=== PATIENT | female | born 1970 | race Caucasian/White ===

== ENCOUNTER 2017-07-04 08:57 | Observation (INO) | payer MEDICARE ==
[2017-07-04 09:29] LABS: #Lymphocytes 1.3 thou/uL (1.20-3.40); #Monocytes 0.6 thou/uL (0.11-0.59); #Neutrophils 10.5 thou/uL (1.40-6.50); %Basophils 0.1 % (0.0-1.0); %Eosinophils 0.2 % (0.0-10.0); %Lymphocytes 10.3 % (21.0-51.0); %Monocytes 4.6 % (0.0-10.0); %Neutrophils 84.9 % (42.0-75.0); Hemoglobin 16.7 g/dL (12.0-16.0); Mean Corpuscular HGB CONC 35.1 g/dL (32.0-36.0); Mean Corpuscular Hemoglobin 31.4 pg (27.0-31.0); Mean Corpuscular Volume 89.4 fl (81.0-99.0); Mean Platelet Volume 6.6 fL (7.4-10.4); Platelet Count 434 thou/uL (130-400); RBC Distribution Width 11.1 % (11.5-14.5); Red Blood Cell (RBC) Count 5.32 mill/uL (4.20-5.40); White Blood Cell (WBC) Count 12.4 thou/uL (4.8-10.8)
--- NOTE | 2017-07-04 09:41 | CT ---
CT OF BRAIN PERFORMED WITHOUT CONTRAST ENHANCEMENT: Date: 07/04/17 HISTORY: Headache. FINDINGS: The ventricular and cisternal system is within normal limits. There are no signs of intracerebral hem orrhage or extra-axial fluid collections. The mastoid air cells and visualized sinuses are clear. IMPRESSION: No acute intracranial abnormalities. POS: [facility]
[2017-07-04 09:47] LABS: ALT (SGPT) 20 U/L (8-55); AST (SGOT) 12 U/L (5-34); Albumin 4.8 g/dL (3.5-5.0); Alkaline Phosphatase 97 U/L (40-150); Anion Gap 16 mmol/L (10-20); BUN (Urea Nitrogen) 11 mg/dL (7.0-18.7); Bilirubin, Total 0.6 mg/dL (0.2-1.2); CK (CPK) 65 U/L (29-168); Calc. Creatinine Clearance 0 mL/min (70-130); Calcium 10.3 mg/dL (7.8-10.44); Carbon Dioxide 24 mmol/L (22-29); Chloride 98 mmol/L (98-107); Estimated GFR-MDRD 71; Globulin 3.7 g/dL (2.4-3.5); Glucose 244 mg/dL (70-105); Protein, Total 8.5 g/dL (6.0-8.3); Sodium 134 mmol/L (136-145)
[2017-07-04 09:51] LABS: CKMB 0.8 ng/mL (0-6.6); Troponin I Less than 0.010 ng/mL (< 0.028)
[2017-07-04] MEDS ORDERED: Metoclopramide 10 MG/10 ML UDCUP ONE (09:56)
[2017-07-04] MEDS ORDERED: diphenhydrAMINE 50 MG/ML VIAL ONE (09:56)
[2017-07-04] MEDS ORDERED: Metoclopramide HCl 10 MG/2 ML VIAL IVP SCH ×2 (10:15→15:30)
[2017-07-04 10:16] LABS: PTT 28.1 SEC (22.9-36.1); Prothrombin Time 13.4 SEC (12.0-14.7)
--- NOTE | 2017-07-04 11:01 | CT ---
CT ANGIOGRAM BRAIN WITH IV CONTRAST AND 3D RECONSTRUCTIONS CT ANGIOGRAM NECK WITH IV CONTRAST AND 3D RECONSTRUCTIONS: Date: 07/04/17 HISTORY: Patient with dizziness, nausea, vomiting, and headache. Pain to base of head and neck. Vision changes . FINDINGS: CT ANGIOGRAM NECK: Visualized aortic arch is normal in caliber. There is a normal arrangement of the great vessels at th e aortic arch which do appear patent. A portion of the right subclavian artery is obscured due to den se contrast in the right subclavian vein. The innominate artery, as well as bilateral common carotid arteries are patent. The bilateral internal and external carotid arteries are patent. There is no sig nificant atherosclerotic plaque seen within the carotid arteries. The right vertebral artery is dominant and patent. The left vertebral artery is patent and smaller in size, but terminates in PICA. Visualized upper lobes are clear. Visualized paranasal sinuses and mastoid air cells are clear. Degenerative changes are seen in the spine. There is mild prominence of the adenoids, which is nonspecific. Calcifications are seen in the pal[place] ne tonsils bilaterally, likely related to prior infectious or inflammatory process. The bilateral parotid and submandibular glands demonstrate a normal CT appearance. Thyroid gland has a normal appearance. IMPRESSION: 1. Patent bilateral internal carotid arteries. 2. Patent bilateral vertebral arteries. The left vertebral artery terminates in PICA, which is a nor mal variant. 3. Nonspecific prominence of the adenoids. No enlarged lymph nodes are seen by CT size criteria, but there is questionable borderline increased number of lymph nodes. Clinical correlation for evidence of infection is suggested, and non-emergent ENT consultation may be helpful depending on clinical con cern. CT ANGIOGRAM HEAD: The bilateral anterior cerebral and middle cerebral arteries are patent. Distal bilateral internal ca rotid arteries are patent. As noted on the CTA neck, the right vertebral artery is dominant and patent. The basilar artery, as w ell as bilateral posterior cerebral arteries are patent. The distal left vertebral artery terminates in PICA. There is no focal stenosis or branch occlusion seen. No aneurysm is seen within limitations of the te chnique of the exam. IMPRESSION: No focal stenosis or branch occlusion involving the [place] or vertebrobasilar system. Above findings discussed with Suze Pendleton, nurse practitioner in the emergency department, on 8 at 1033 hours. CODE CR. POS: [facility]
[2017-07-04] MEDS ORDERED: Ketorolac Tromethamine 30 MG/ML VIAL ONE (11:06)
[2017-07-04] MEDS ORDERED: Ondansetron ODT 4 MG TAB ONE (11:51)
[2017-07-04] MEDS ORDERED: Diabetic Tussin 200 MG/10 ML UDCUP PO PRN (13:08)
[2017-07-04] MEDS ORDERED: hydrALAZINE 20 MG/ML VIAL SLOW IVP PRN (13:08)
[2017-07-04] MEDS ORDERED: Loratadine 10 MG TAB PO PRN (13:08)
[2017-07-04] MEDS ORDERED: Benzonatate 100 MG CAP PO PRN (13:08)
[2017-07-04] MEDS ORDERED: Calcium Carbonate 500 MG ChewTAB PO PRN (13:08)
[2017-07-04] MEDS ORDERED: traMADol HCl 50 MG TAB PO PRN (13:08)
[2017-07-04] MEDS ORDERED: cloNIDine 0.1 MG TAB PO PRN (13:08)
[2017-07-04] MEDS ORDERED: Bisacodyl 5 MG TAB PO PRN ×2 (13:08)
[2017-07-04] MEDS ORDERED: Nitroglycerin 0.4 MG TAB (25 Tab Bottle) SL PRN (13:08)
[2017-07-04] MEDS ORDERED: Ondansetron HCl/PF 4 MG/2 ML Vial IVP PRN (13:08)
[2017-07-04] MEDS ORDERED: Mag-Al 1200 mg/1200 mg/30 ML UDCUP PO PRN (13:08)
[2017-07-04] MEDS ORDERED: Senokot 8.6 MG TAB PO PRN ×2 (13:08)
[2017-07-04] MEDS ORDERED: SUMAtriptan Succinate 50 MG TAB PO SCH (13:15)
[2017-07-04] MEDS ORDERED: ISOVUE-370 76%-LOCM 1 ML ONE (13:37)
--- NOTE | 2017-07-04 14:14 | MRI ---
MRI BRAIN NONCONTRAST: HISTORY: TIA. COMPARISON: 07/04/17. FINDINGS: There is no evidence of acute intracranial hemorrhage or infarct. Gyriform areas of increased FLAIR and T2 signal involve bilateral posterior parietal and medial occipital areas, consistent with evolvi ng infarcts from the prior vascular injury in July 2016. There is no mass effect or shift of midline structures. Ventricles appear normal in size, shape, and position. Adenoidal prominence is nonspeci fic. IMPRESSION: Interval evolution of bilateral posterior cerebral artery infarcts from last year. No acute intracra nial abnormalities are demonstrated. POS: [facility]
[2017-07-04 14:37] LABS: Bilirubin Negative (Negative); Blood, Urine Negative (Negative); Clarity CLEAR (Clear); Glucose, Urine (Dipstick) 250 mg/dL (Negative); Leukocyte Negative (Negative); Nitrite Negative (Negative); Protein, Urine (Dipstick) 30 mg/dL (Neg-Trace); Specific Gravity, Urine 1.043 (1.002-1.036); Urobilinogen 0.2 mg/dL (0.2-1.0)
[2017-07-04 14:40] LABS: Bacteria/HPF None Seen HPF (None Seen); Hyaline Casts/LPF 0-3 HYALINE CAST LPF (0-3 Hyaline); RBC/HPF 0-3 HPF (0-3); Squamous Epithelial 0-3 HPF (0-3); WBC/HPF None Seen HPF (0-3)
[2017-07-04] MEDS ORDERED: Ketorolac Tromethamine 30 MG/ML VIAL IVP PRN (15:25)
[2017-07-04] MEDS ORDERED: Metoclopramide HCl 10 MG/2 ML VIAL IVP PRN (15:25)
[2017-07-04] MEDS ORDERED: Ketorolac Tromethamine 30 MG/ML VIAL IVP SCH (15:30)
[2017-07-04] MEDS ORDERED: Dextrose 5% in Water 1,000 ML IV PRN (15:34)
[2017-07-04] MEDS ORDERED: HumaLOG 300 UNITS/3 ML VIAL SC PRN ×2 (15:34)
[2017-07-04] MEDS ORDERED: Dextrose 50% Abboject 50 ML SYRINGE SLOW IVP PRN (15:34)
[2017-07-04 15:51] VITALS: BMI 29.0
[2017-07-04] MEDS: Sodium Chloride 0.9% 1,000 ML IV SCH (16:28)
[2017-07-04] MEDS: Acetaminophen 325 MG TAB PO PRN (20:42)
--- NOTE | 2017-07-05 00:03 | CON ---
DATE OF CONSULTATION: 07/04/2017 REFERRING PHYSICIAN: Kortney Lee MD REASON FOR CONSULTATION: Vision loss. HISTORY OF PRESENT ILLNESS: Ms. Cavazos is a pleasant 46-year-old female, who has been concerned for evaluation of visual loss. The patient reports that she has a history of stroke about a year ago that affected her vision. She had recovered well post her stroke, and was not having any issues. About few days ago, she was diagnosed with sinus infection. She was given oral antibiotics. After undergoing oral antibiotics, at the completion, she started noticing nausea, vomiting, and di arrhea. This has been ongoing for the past 3-4 days. Yesterday, she woke up with severe headache th at was located in the bifrontal orbital region. This was throbbing in quality and severe in intensit y. She also noted worsening of her vision. She decided to present to the emergency room today as he r symptoms were not improving. She currently reports that she is not able to see out of both eyes wh en they are both open. When she closes either eye, she is able to see part of the image, but not com pletely make out the whole image. She denies any changes in her speech, swallowing. She does compla in of having episode of chest pain and palpitations on yesterday. She also noted her balance to be o ff on yesterday; however, denies any falls. 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 PAST SURGICAL HISTORY: Significant for bilateral knee replacement and gastric bypass surgery. SOCIAL HISTORY: She denies smoking, alcohol use, or illicit drug use. CURRENT MEDICATIONS: Please review MAR. ALLERGIES: No known drug allergies. FAMILY HISTORY: None significant. PSYCHIATRIC HISTORY: History of anxiety, depression, and PTSD. REVIEW OF SYSTEMS: As mentioned above in HPI, otherwise negative. PHYSICAL EXAMINATION: VITAL SIGNS: Blood pressure of 132/68, pulse of 77, temperature of 98.3, respirations of 18, O2 sats of 98% on room air. GENERAL: Well-developed, well-nourished, female in no apparent distress. RESPIRATORY: Clear to auscultation bilaterally. NEUROLOGIC: Mental status: The patient is awake, alert, oriented x3. Speech and language: Fluent speech. Cranial nerves: Pupils are 3 mm and reactive. Visual villafana showed that she has normal fin colin counting on right side. On the left side, there is left temporal field inferior quadrantanopia, otherwise normal. Extraocular muscles are intact. No ptosis noted. Face is symmetric. Tongue and uvula are midline. Motor exam showed normal tone and bulk with a 5/5 strength in both upper and lowe r extremities. Sensory: Sensation is intact and symmetric. Deep tendon reflexes, 2+ reflex in both upper and lower extremities. Babinski: Plantar responses flexion bilaterally. Coordination intact to jfoyln-voae-yoeada and finger tapping bilaterally. LABORATORY DATA: Labs are reviewed, which included CBC, coag panel, CMP, urinalysis, which is signif icant for WBC of 12.4, hemoglobin 16.7, hematocrit of 47.6, platelet counts of 434, sodium 134; other cassidy unremarkable. IMAGING STUDIES: MRI brain without contrast was reviewed, which showed no acute intracranial abnorma lity. CT angiogram of the head and neck were reviewed, which showed no intracranial or extracranial vascula r abnormality. IMPRESSION: 1. Bilateral visual changes, likely secondary to migraine. 2. Migraine headache with aura. ASSESSMENT AND PLAN: Ms. Cavazos is a pleasant 46-year-old female who presented with a history of bilateral occipital stroke, presented with the acute onset of vision changes along with he adaches, nausea, and vomiting. Based on the description of symptoms, she likely has complicated migr prisca; however, I have reviewed her MRI brain and CT angiogram, which are nonrevealing. At this time, I will recommend giving her a dose of IV Depacon 500 mg x1. If her vision and headaches improved, s he is okay to be discharged home. There is no further neurological workup needed from my standpoint. Thank you for consultation.
[2017-07-05] MEDS: Sodium Chloride 0.9% 1,000 ML IV SCH (03:53)
[2017-07-05 05:48] LABS: #Basophils 0.1 thou/uL (0.0-0.2); #Lymphocytes 2.5 thou/uL (1.20-3.40); #Monocytes 0.7 thou/uL (0.11-0.59); #Neutrophils 4.4 thou/uL (1.40-6.50); %Basophils 0.9 % (0.0-1.0); %Eosinophils 0.6 % (0.0-10.0); %Lymphocytes 32.5 % (21.0-51.0); %Monocytes 9.2 % (0.0-10.0); %Neutrophils 56.7 % (42.0-75.0); Hemoglobin 14.1 g/dL (12.0-16.0); Mean Corpuscular HGB CONC 33.7 g/dL (32.0-36.0); Mean Corpuscular Hemoglobin 30.1 pg (27.0-31.0); Mean Corpuscular Volume 89.3 fl (81.0-99.0); Mean Platelet Volume 6.6 fL (7.4-10.4); Platelet Count 346 thou/uL (130-400); RBC Distribution Width 11.3 % (11.5-14.5); White Blood Cell (WBC) Count 7.7 thou/uL (4.8-10.8)
[2017-07-05 05:53] LABS: Cardiac Risk 2.8 (Less than 4.5)
[2017-07-05 05:56] LABS: Anion Gap 11 mmol/L (10-20); BUN (Urea Nitrogen) 16 mg/dL (7.0-18.7); Calc. Creatinine Clearance 108 mL/min (70-130); Calcium 9.3 mg/dL (7.8-10.44); Carbon Dioxide 26 mmol/L (22-29); Chloride 104 mmol/L (98-107); Estimated GFR-MDRD 76; Glucose 147 mg/dL (70-105); Potassium 3.4 mmol/L (3.5-5.1); Sodium 138 mmol/L (136-145)
--- NOTE | 2017-07-05 07:43 | HP ---
DATE OF ADMISSION: 07/04/2017 PRIMARY CARE PHYSICIAN: Jazmine Naqvi M.D. CHIEF COMPLAINT: Blurred vision, intractable headache, nausea, and vomiting. HISTORY OF PRESENTING ILLNESS: Ms. Cavazos is a 46-year-old female with known history of posterio r cerebral artery stroke last year as well as history of vertebral arterial dissection and stroke, hi story of lupus and dyslipidemia who presented to the ER with above-mentioned complaints. History is mainly obtained by the patient and supplemented by her daughter present in the room. Electronic [facility] records have been reviewed. She was last admitted to our facility in 07/2016 and at that time, s he was found to have bilateral posterior cerebral arterial circulation stroke. Today, she came to the emergency room because she has been having a headache since yesterday. It is associated with dizziness, nausea, vomiting, and blurred vision. She denies any weakness or paraesth esias to her arms or legs. She denies any recent illnesses. She denies any dysphagia, slurred speec h, facial droop or difficulty with swallowing. She has no fever, chills, cough, shortness of breath, or chest pain. Upon presentation to the ER, she was quite uncomfortable and her blood pressure was elevated to 186/7 6. She underwent a general evaluation to rule out CVA which included CT scan of her brain which was unremarkable. She then underwent CT angiogram of the head and neck, which is also negative. She is now being admitted for further evaluation as her symptoms are persistent and ER physician wanted to r ule out stroke. PAST MEDICAL HISTORY: 1. History of bilateral [place] territorial infarct in 2017. 2. History of vertebral arterial dissection at C2 level. 3. History of lupus. 4. Dyslipidemia. 5. Diabetes mellitus type 2. 6. Hypertension. 7. History of gastric bypass. 8. History of ankylosing spondylitis. PAST SURGICAL HISTORY: 1. Total knee replacement x2. 2. History of gastric bypass. PSYCHIATRIC HISTORY: Anxiety, depression and PTSD. SOCIAL HISTORY: No drug, tobacco or alcohol abuse. Currently, lives with her daughter. ALLERGIES: No known medication allergies. FAMILY HISTORY: No significant family history of coronary artery disease or stroke reported in the f amily. CURRENT MEDICATIONS: Need to be confirmed further with the patient. The current medications are unk nown at this time, will further need to be confirmed. REVIEW OF SYSTEMS: It is negative except for those mentioned in the history and physical. [facility] systems was negative, unless otherwise mentioned in the HPI or below: Constitutional: Weight loss or gain, ability to conduct usual activities. Skin: Rash, itching. Eyes: Double vision, pain. ENT/Mouth: Nose bleeding, neck stiffness, pain, tenderness. Cardiovascular: Palpitations, dyspnea on exertion, orthopnea. Respiratory: Shortness of breath, wheezing, cough, hemoptysis, fever or night sweats. Gastrointestinal: Poor appetite, abdominal pain, heartburn, nausea, vomiting, constipation, or diarr hea. Genitourinary: Urgency, frequency, dysuria, nocturia. Musculoskeletal: Pain, swelling. Neurologic/Psychiatric: Anxiety, depression. Allergy/Immunologic: Skin rash, bleeding tendency. PHYSICAL EXAMINATION: VITAL SIGNS: Upon presentation include blood pressure 186/76, pulse of 56, respirations 18, saturati ng 100% on room air, temperature 97.8. GENERAL: The patient appears very uncomfortable with a headache and keeps her eyes closed in the [facility] room. She is somewhat sweaty as well, but is otherwise awake, alert, oriented x3 and is pleasant. HEENT: Mucous membrane is moist and pink. Pupils are equal, reactive to light and accommodation. E xtraocular movement intact. NECK: Supple without any lymphadenopathy, JVD or bruit. CHEST: Clear to auscultation without any wheezing, rales or rhonchi. Rate and rhythm is regular wit hout any murmur, rubs or gallops. ABDOMEN: Soft, nontender, nondistended with positive bowel sounds. EXTREMITIES: Free of any cyanosis, clubbing, or edema. NEUROLOGIC: Nonfocal. PSYCHIATRIC: Normal affect. LABORATORY DATA: Her CBC shows WBCs at 12.4 with 84% neutrophils, otherwise unremarkable. Platelet count is high at 434. Coagulation studies within normal limits. Serum chemistries show sodium of 13 4, blood sugar 244, troponin less than 0.010. Urinalysis is unremarkable except for proteinuria, glu cosuria and some ketones. IMAGING DATA: 1. CT scan of the brain by my review has no signs of any hemorrhage fluid collection or acute infarc tion. CT angiogram of the head and neck is unremarkable. No focal stenosis seen. 2. MRI of the brain has been done and it shows interval evaluation of bilateral posterior cerebral a rterial infarcts from last year without any acute intracranial abnormalities. IMPRESSION AND PLAN: 1. Headache, nausea, vomiting, and vision changes. The patient has a normal MRI and the likelihood of this being an acute stroke is very low. She also has had a normal CT scan of the brain and a norm al CT angiogram of the head and neck. Most likely this is status migrainous. The patient has receiv ed Imitrex with naproxen in the emergency room without much benefit. Please note that the Imitrex wa s given orally. At this time, we will treat her with IV NSAIDs with Toradol and IV metoclopramide. We will request consultations with Neurology in case she needs to be treated with IV DHE. Repeat the Imitrex with naproxen in 6 hours or so if there is no benefit. She will be on the stroke floor with frequent neuro checks at this time. 2. Status migrainous, as above #1. 3. Leukocytosis, most likely this is a hemoconcentration as evident by the hemoglobin and high plate let count and ketonuria. We will start her on normal saline for hydration purposes. Urinalysis is c lear. She has no symptoms to suggest any infection at this time. 4. Hypertension. The patient's blood pressure was quite high when she came in because of the pain. We will restart her home medications and monitor closely. 5. Diabetes mellitus type 2. Restart her home medications once confirmed and meanwhile, we will con tinue with insulin sliding scale and Accu-Cheks a.c. and at bedtime. 6. History of multiple strokes. Continue with aspirin and statin if she is still on it as she shoul d be. At this time, we will treat her with a full dose of aspirin until as it is not contraindicated . We will check lipid panel again. 7. Deep venous thrombosis and gastrointestinal prophylaxis. 8. Code status: FULL code. Discussed with the patient. DISPOSITION: Ms. Cavazos is currently being admitted to the hospital for intractable headache, na usea, vomiting, likely status migrainous. Stroke has been ruled out by the negative MRI. Further ma nagement will depend upon her clinical course and neurology's recommendations. At this time, she is observation status.
[2017-07-05] MEDS ORDERED: Dicyclomine 10 MG CAP PO PRN (08:51)
[2017-07-05] MEDS ORDERED: LORAZEPAM 2 MG PO PRN (08:51)
[2017-07-05] MEDS ORDERED: Aspirin 81 mg Enteric Coated Tablet PO SCH (09:00)
[2017-07-05] MEDS ORDERED: Aspirin 325 mg Enteric Coated Tablet PO SCH (09:00)
[2017-07-05] MEDS ORDERED: Potassium Chloride 20 MEQ TAB PO SCH (09:00)
[2017-07-05] MEDS ORDERED: Montelukast Sodium 10 mg Tablet PO SCH (09:00)
[2017-07-05] MEDS ORDERED: Enoxaparin Sodium 40 MG/0.4 ML SYRINGE SC SCH (09:00)
[2017-07-05] MEDS: Acetaminophen 325 MG TAB PO PRN (11:37)
[2017-07-05 12:03] VITALS: BP 108/64; TEMP 98.5
--- NOTE | 2017-07-05 14:01 | DIS ---
DATE OF ADMISSION: 07/04/2017 DATE OF DISCHARGE: 07/05/2017 CONDITION AT THE TIME OF DISCHARGE: Stable and improved. DISCHARGE DISPOSITION: Home. PRIMARY CARE PHYSICIAN: Jazmine Naqvi M.D. PRIMARY DIAGNOSES: 1. Complicated migraines. 2. Stroke ruled out. SECONDARY DISCHARGE DIAGNOSES: 1. History of bilateral posterior cerebral artery territory infarct in 2017. 2. History of vertebral arterial dissection. 3. History of lupus. 4. Dyslipidemia. 5. Diabetes mellitus. 6. Hypertension. 7. Gastric bypass. 8. Ankylosing spondylitis. DISCHARGE MEDICATIONS HOME: Medications remained the same as per the HPI. New medication as follows , sumatriptan/naproxen 85/500 mg p.o. t.i.d. p.r.n. for the migraines. INHOUSE CONSULTATIONS: Neurology, Dr. Trisha Meza. PROCEDURES DONE IN THE HOSPITAL: CT angio of the head and neck, which is negative for any occlusions or ischemia. CT scan of the brain, which is negative for any acute infarction. MRI of the brain, which is once again negative for any acute infarction and it shows evaluation of th e prior bilateral posterior cerebral arterial infarct from last year. HISTORY OF PRESENT ILLNESS. Ms. Cavazos is a 46-year-old pleasant female with past medical histor y of stroke, lupus, diabetes, and hypertension, who presented to the emergency room with intractable headache, vomiting, nausea, and vision changes. There was concern of stroke, so she underwent a gene ral workup in the emergency room including a CT scan of the brain and CT angiogram of the head and ne ck, which was unremarkable. She was admitted for further workup. Please see admission history and p hysical for further detail. HOSPITAL COURSE: The patient's symptoms are consistent with migraine attack, so she was given sumatr iptan with naproxen as well as IV Depakote along with metoclopramide and Toradol. Neurology was cons ulted and IV Depakote was given as per Dr. Meza's instructions. The patient had dramatic improvement in her symptoms with these measures and this morning, she is back to herself, walking around in the hallways and eager to go home. She still has some blurred vision, but her headache has improved to t he point where it is almost nil. PHYSICAL EXAMINATION: She was seen and examined prior to discharge. this morning VITAL SIGNS: Temperature 98.5, pulse of 77, respirations 18, saturating 99% on room air, blood press ure 108/64. GENERAL: No acute distress, awake, alert, oriented x3. CHEST: Clear to auscultation without any wheezing, rales, or rhonchi. Rhythm is regular without any murmur, rubs or gallops. NEUROLOGICAL: Nonfocal. LABORATORY DATA: CBC shows WBC 7.7, which was 12.4 upon presentation, platelet count 346, which was 434 upon presentation. Serum chemistry: Potassium 3.4, which was supplemented prior to discharge. Cholesterol panel within normal limits. Urinalysis showed glucosuria, proteinuria, mild ketonuria ot herwise unremarkable. She is instructed to follow up with Dr. Alfonso Meza, who is her primary neurologist in 7-10 days as w ell as with her primary care physician in 7-10 days. Discharge plan was discussed with the patient. Prescriptions were provided and she verbalized understanding.
[2017-07-05] MEDS ORDERED: Atorvastatin Calcium 10 MG TAB PO SCH (21:00)
[2017-07-05] MEDS ORDERED: ELUXADOLINE PO SCH (21:00)
[2017-07-06] MEDS ORDERED: Levothyroxine Sodium 75 MCG TAB PO SCH (06:00)
== END 2017-07-05 12:25 | disposition home or self-care (01) ==
LOC: ERS 08:57 → INTOOBSV 13:16 → 2SE 13:16
PROVIDERS: ADMIT Internal Medicine; ATTEND Internal Medicine
DX: G43.809 Other migraine, not intractable, without status migrainosus (principal); M32.9 Systemic lupus erythematosus, unspecified; E78.5 Hyperlipidemia, unspecified; E11.9 Type 2 diabetes mellitus without complications; I10 Essential (primary) hypertension; M45.9 Ankylosing spondylitis of unspecified sites in spine; F41.9 Anxiety disorder, unspecified; F32.9 Major depressive disorder, single episode, unspecified; F43.10 Post-traumatic stress disorder, unspecified; D72.829 Elevated white blood cell count, unspecified; M19.90 Unspecified osteoarthritis, unspecified site; J45.909 Unspecified asthma, uncomplicated; G43.109 Migraine with aura, not intractable, without status migrainosus; Z79.82 Long term (current) use of aspirin; Z79.51 Long term (current) use of inhaled steroids; Z79.899 Other long term (current) drug therapy; Z98.84 Bariatric surgery status; Z96.653 Presence of artificial knee joint, bilateral; Z86.73 Personal history of transient ischemic attack (TIA), and cerebral infarction without residual deficits; Z86.79 Personal history of other diseases of the circulatory system
CPT/HCPCS: 70450; 70496; 70498; 70551; 80048; 80053; 80061; 82550; 82553; 82962 ×2; 84484; 85025 ×2; 85610; 85730; 93005; 96361; 96372; 96374; 96375 ×2; 96376; 97139; 99285; G0378; 36415; 36416; 81003; 81015; J0360; J1200; J1650; J1885; J2765; Q0162

== ENCOUNTER 2018-02-18 22:55 | Inpatient (IN) | payer MEDICARE ==
[2018-02-19 00:06] LABS: Base Excess-Venous 0.2 mmol/L (0 (+/- 2.5)); Bicarbonate (HCO3v) 23.1 mmol/L (22.0-29.0); CO2 Tension (PvCO2) 31.9 mmHg (41.0-51.0); Calcium, Ionized 1.05 mmol/L (1.12-1.32); Hemoglobin - Calc 14.7 g/dL (12.0-18.0); Lactate 1.49 mmol/L (0.50-2.20); Potassium 3.7 mmol/L (3.4-4.7); T. Carbon Dioxide 24.1 mmol/L (1.0-85.0); pH (Venous) 7.467 (7.35-7.45); vO2 Saturation-calc 60.4 % (94-98)
[2018-02-19 00:38] LABS: #Monocytes 0.2 thou/uL (0.11-0.59); %Basophils 0.7 % (0.0-1.0); %Eosinophils 0.3 % (0.0-10.0); %Lymphocytes 23.3 % (21.0-51.0); %Monocytes 5.7 % (0.0-10.0); Hemoglobin 15.6 g/dL (12.0-16.0); Mean Corpuscular HGB CONC 34.5 g/dL (32.0-36.0); Mean Corpuscular Hemoglobin 30.3 pg (27.0-31.0); Mean Corpuscular Volume 87.7 fL (78.0-98.0); Mean Platelet Volume 7.2 fL (7.4-10.4); Platelet Count 294 thou/uL (130-400); Red Blood Cell (RBC) Count 5.15 mill/uL (4.20-5.40); White Blood Cell (WBC) Count 4.2 thou/uL (4.8-10.8)
[2018-02-19] MEDS ORDERED: Lorazepam 2 MG/ML VIAL ONE (00:40)
[2018-02-19 00:44] LABS: PTT 23.7 SEC (22.9-36.1); Prothrombin Time 13.7 SEC (12.0-14.7)
[2018-02-19 01:02] LABS: Acetaminophen Less than 6.0 mcg/mL (10.0-30.0); Alcohol Less than 10 mg/dL (Less than 10); Salicylate Less than 8.0 mg/dL (15.0-30.0)
[2018-02-19 01:03] LABS: ALT (SGPT) 19 U/L (8-55); AST (SGOT) 26 U/L (5-34); Albumin 4.9 g/dL (3.5-5.0); Alkaline Phosphatase 85 U/L (40-150); Anion Gap 23 mmol/L (10-20); BUN (Urea Nitrogen) 11 mg/dL (7.0-18.7); Bilirubin, Total 0.7 mg/dL (0.2-1.2); Calc. Creatinine Clearance 0 mL/min (70-130); Calcium 10.1 mg/dL (7.8-10.44); Carbon Dioxide 17 mmol/L (22-29); Chloride 100 mmol/L (98-107); Estimated GFR-MDRD 58; Globulin 3.6 g/dL (2.4-3.5); Glucose 332 mg/dL (70-105); Potassium 4.4 mmol/L (3.5-5.1); Protein, Total 8.5 g/dL (6.0-8.3); Sodium 136 mmol/L (136-145)
[2018-02-19] MEDS ORDERED: Ondansetron PF 4 MG/2 ML Vial ONE ×2 (01:04→05:43)
[2018-02-19 01:59] LABS: Bilirubin Negative (Negative); Blood, Urine Trace (Negative); Clarity CLEAR (Clear); Glucose, Urine (Dipstick) 500 mg/dL (Negative); Leukocyte Negative (Negative); Nitrite Negative (Negative); Protein, Urine (Dipstick) Trace mg/dL (Neg-Trace); Specific Gravity, Urine 1.016 (1.002-1.036); Urobilinogen 0.2 mg/dL (0.2-1.0); pH, Urine 5.5 (5.0-9.0)
[2018-02-19 02:03] LABS: Bacteria/HPF None Seen HPF (None Seen); Hyaline Casts/LPF 0-3 HYALINE CAST LPF (0-3 Hyaline); Pathc Cast-AUWi Flag 0.14 (0-2.49); RBC/HPF 0-3 HPF (0-3); Squamous Epithelial 0-3 HPF (0-3); WBC/HPF None Seen HPF (0-3)
[2018-02-19 02:30] LABS: Medtox Reader # READER 1
[2018-02-19 02:31] LABS: Amphetamine Not Detected (NotDetected); Barbiturates Screen Not Detected (NotDetected); Benzodiazepine Screen Not Detected (NotDetected); Cocaine Metabolite Screen Not Detected (NotDetected); Medtox Control Line Valid? VALID (VALID); Methadone Not Detected (NotDetected); Methamphetamine Not Detected (NotDetected); Opiate Screen Not Detected (NotDetected); Oxycodone Screen Not Detected (NotDetected); Phencyclidine (PCP) Not Detected (NotDetected); THC/Cannabinoid Screen Detected (NotDetected); Tricyclic Screen Not Detected (NotDetected)
[2018-02-19] MEDS ORDERED: Fentanyl 100 MCG/2 ML VIAL ONE (03:11)
[2018-02-19] MEDS ORDERED: Lidocaine 4% Topical Sol 50 ML BOT ONE (03:11)
[2018-02-19] MEDS ORDERED: Lidocaine 1% w/Epinephrine 1:100K 20 ML VIAL ONE (03:13)
[2018-02-19 03:28] LABS: Base Excess-Venous -2.2 mmol/L (0 (+/- 2.5)); Bicarbonate (HCO3v) 22.4 mmol/L (22.0-29.0); CO2 Tension (PvCO2) 37.4 mmHg (41.0-51.0); Calcium, Ionized 1.11 mmol/L (1.12-1.32); Hemoglobin - Calc 14.9 g/dL (12.0-18.0); O2 Tension (PvO2) 130.2 mmHg (35.0-45.0); Potassium 3.7 mmol/L (3.4-4.7); T. Carbon Dioxide 23.6 mmol/L (1.0-85.0); pH (Venous) 7.385 (7.35-7.45); vO2 Saturation-calc 98.9 % (94-98)
[2018-02-19 04:39] LABS: CSF, Glucose 149 mg/dl (40-70); CSF, Protein 30 mg/dL (15-40)
[2018-02-19 04:44] LABS: CSF Source CSF; Clarity Clear (Clear); Tube # 4
[2018-02-19 04:49] LABS: CSF Source CSF; RBC Count - Manual 349 /cumm (None Seen); WBC/NonHematics Count - Manual 1 /cumm (0-5)
[2018-02-19 04:50] LABS: Clarity Hazy (Clear); Tube # 1
[2018-02-19 04:53] LABS: WBC/NonHematics Count - Manual 1 /cumm (0-5)
[2018-02-19 04:54] LABS: RBC Count - Manual 5175 /cumm (None Seen)
[2018-02-19 04:58] LABS: Color Of CSF Supernatant COLORLESS (Colorless); Tube # 2; Unspun CSF Color PINK (Colorless)
[2018-02-19] MEDS ORDERED: Acetaminophen 325 MG TAB PO PRN (05:09)
[2018-02-19] MEDS ORDERED: Senokot S 8.6-50 MG TAB PO PRN (05:09)
[2018-02-19] MEDS ORDERED: Bisacodyl 5 MG TAB PO PRN (05:09)
[2018-02-19] MEDS ORDERED: Calcium Carbonate 500 MG ChewTAB PO PRN (05:09)
[2018-02-19] MEDS ORDERED: Ondansetron ODT 4 MG TAB PO PRN (05:09)
[2018-02-19] MEDS ORDERED: Lorazepam 2 MG/ML VIAL SLOW IVP PRN (05:09)
[2018-02-19] MEDS ORDERED: Dextrose 5% in Water 1,000 ML IV PRN (05:13)
[2018-02-19] MEDS ORDERED: HumaLOG 300 UNITS/3 ML VIAL SC PRN ×2 (05:13)
[2018-02-19] MEDS ORDERED: Dextrose 50% Abboject 50 ML SYRINGE SLOW IVP PRN (05:13)
[2018-02-19] MEDS ORDERED: Piperacillin/Tazobactam 3.375 GM VIAL ONE (05:31)
[2018-02-19] MEDS ORDERED: Morphine 4 MG/ML VIAL ONE (05:43)
[2018-02-19] MEDS: Sodium Chloride 0.9% 1,000 ML IV SCH ×2 (07:44→16:05)
--- NOTE | 2018-02-19 08:01 | RAD ---
PORTABLE AP CHEST XRAY: DATE: 02/18/2018. HISTORY: Cough, vomiting, fever, and diarrhea. COMPARISON: None available. FINDINGS: Cardiac silhouette and pulmonary vasculature are within normal limits. The lungs are clear. Osseous structures are intact. IMPRESSION: No acute cardiopulmonary process. POS: [facility]
--- NOTE | 2018-02-19 08:03 | CT ---
PRELIMINARY REPORT/[facility]/EMERGENTY AFTER-HOURS PROCEDURE CT Head Without Contrast EXAM DATE/TIME: 02/19/2018 1:18 AM CLINICAL HISTORY: 47 years old, female; Signs and symptoms; Other: Seizure; Patient HX: Per nursing staff, PT began sei zing, urinated on herself, and was not breathing. PT now in postictal state and is breathing on her o wn. Pt's daughter on phone states PT has no HX of seizures. TECHNIQUE: Axial computed tomography images of the head/brain without contrast. COMPARISON: No relevant prior studies available. FINDINGS: Brain: Few areas of hypoattenuation within the posterior parietal and occipital lobes bilaterally, li sharda chronic small vessel ischemic change, demyelination, or gliosis. No mass, hemorrhage, or acute i nfarction. Ventricles: Normal. Bones/joints: Normal. Sinuses: Normal as visualized. Mastoid air cells: Normal as visualized. Soft tissues: Normal. IMPRESSION: 1. No acute intracranial abnormality. 2. Few areas of hypoattenuation within the posterior parietal and occipital lobes bilaterally, likely chronic small vessel ischemic change, demyelination, or gliosis. Thank you for allowing us to participate in the care of your patient. Dictated and Authenticated by: Alfred Pathak MD 02/19/2018 1:43 AM Central Time ([place] & [place]) FINAL REPORT HEAD CT WITHOUT CONTRAST: DATE: 02/19/2018. COMPARISON: None. HISTORY: Seizure, altered mental status. FINDINGS: I agree with the preliminary [facility] report. There is no intracranial hemorrhage, midline shift, or ma ss effect. Imaged paranasal sinuses and mastoid air cells appear well aerated. No displaced calvarial fracture. Vague areas of decreased attenuation noted in posterior parietal and medial occipital regions bilater ally, suggesting areas of prior ischemia. IMPRESSION: No acute findings. If symptoms persist, MRI suggested to evaluate for seizure focus. POS: [facility]
--- NOTE | 2018-02-19 08:37 | CT ---
PRELIMINARY REPORT/[facility]/EMERGENTY AFTER-HOURS PROCEDURE CT Abdomen and Pelvis With Contrast EXAM DATE/TIME: 02/19/2018 1:22 AM CLINICAL HISTORY: 47 years old, female; Pain and condition or disease; Other: Previous surgeries; Abdominal pain; Other : Lower gastric; Prior surgery; Patient HX: 47 female with past med HX of cva's HTN, hld, with previo us HX of gastric bypass 5 years ago with 5 days of nausea, vomiting, diarrea. Non bilious non bloody. Subjective fevers. Upper abdominal pain. TECHNIQUE: Axial computed tomography images of the abdomen and pelvis with intravenous contrast. Coronal reformatted images were created and reviewed. COMPARISON: No relevant prior studies available. FINDINGS: Tubes, catheters and devices: Bilateral metallic fallopian tube occlusion devices in place. Lower thorax: No acute findings. ABDOMEN: Liver: Normal. Gallbladder and bile ducts: Normal. Pancreas: Normal. Spleen: Normal. Adrenals: Normal. Kidneys and ureters: Normal. Stomach and bowel: Surgical changes of prior gastric bypass, without acute complications. Bowel anastomotic changes within the left upper abdomen, without acute complications. Appendix: Appendix is normal. PELVIS: Bladder: Unremarkable as visualized. Reproductive: Unremarkable as visualized. ABDOMEN and PELVIS: Intraperitoneal space: Normal. No free air. No significant fluid collection. Bones/joints: Multilevel thoracolumbar spine degenerative changes. Soft tissues: Fat containing periumbilical hernia, without acute complications. Vasculature: Phleboliths within the pelvis. Lymph nodes: Normal. No enlarged lymph nodes. IMPRESSION: No acute abdominal or pelvic abnormality. Thank you for allowing us to participate in the care of your patient. Dictated and Authenticated by: Alfred Pathak MD 02/19/2018 1:48 AM Central Time ([place] & [place]) FINAL REPORT CT ABDOMEN AND PELVIS: DATE: 02/19/2018. HISTORY: Abdominal pain. FINDINGS: I agree with the preliminary [facility] report. Imaged lung bases unremarkable. No free intraperitoneal air or fluid. The liver and spleen appear grossly unremarkable. Mild nonspecific distention of the gallbladder. Pancreas, adrenal glands, and kidneys demonstrate no acute findings. Probable parapelv ic cysts noted bilaterally. Essure devices are noted bilaterally. There is evidence of prior gastric bypass surgery. No evidence for bowel inflammatory change, bowel obstruction, or appendicitis. Vascular structures appear patent. No abdominal or pelvic lymphadenop athy is seen. There is fat-containing umbilical hernia. There is no acute osseous abnormality. IMPRESSION: Postoperative changes as detailed above. No free intraperitoneal air or evidence of bowel obstructio n. Mild distention of the gallbladder. POS: [facility]
[2018-02-19] MEDS: Ondansetron PF 4 MG/2 ML Vial IVP PRN ×2 (09:18→19:15)
[2018-02-19] MEDS: Famotidine/PF 20 mg/2ml Vial SLOW IVP SCH ×2 (09:19→20:07)
[2018-02-19] MEDS: Famotidine 20 MG TAB PO SCH ×2 (09:19→20:08)
[2018-02-19] MEDS: Enoxaparin Sodium 40 MG/0.4 ML SYRINGE SC SCH (09:20)
[2018-02-19] MEDS: Cefepime 1 GM in Sodium Chloride 0.9% 100 ML IVPB SCH ×2 (09:38→20:07)
[2018-02-19] MEDS ORDERED: Iopamidol 370 76% 100 ML VIAL ONE (09:45)
--- NOTE | 2018-02-19 12:33 | HP ---
CHIEF COMPLAINT: Abdominal pain and vomiting. HISTORY OF PRESENT ILLNESS: This is a 47-year-old female with past medical history significant for diabetes mellitus type 2, CVA x3, ankylosing spondylitis, lupus, hyperlipidemia, asthma, hypertension, presenting with nausea, vomiting, diarrhea, and witnessed seizures. Per the family, the patient has been having nausea, vomiting, and diarrhea in the past couple of days and the patient is now found to also have productive cough. The patient was brought to the hospital because the patient's symptoms are worsening. Per the patient, she is now having fevers; chills; decreased appetite; diffuse abdominal pain which is 10/10, localized in the abdomen, does not radiate to the back; diarrhea; and vomiting. The patient was recently in our hospital in June 2017 for migraine attacks, and the patient was given sumatriptan with naproxen as well as IV Depakote along with metoclopramide and Toradol. Neurologist saw the patient during that time, the patient improved and the patient was able to go home. At this time, the patient was found to have seizure activity in the ED and it was witnessed by the ED physicians. The patient was given Ativan. Upon questioning and further investigation and speaking to the and the daughter, the family states that the patient has never had seizure before and this is the first time the patient has ever had a seizure. REVIEW OF SYSTEMS: Positive for productive cough, abdominal pain, hyperglycemia, diarrhea, nausea, vomiting, seizures, otherwise as documented in the HPI, all other systems were reviewed and are negative. PAST MEDICAL HISTORY: Gastric bypass 5 years ago, diabetes mellitus type 2, ankylosing spondylitis, systemic lupus erythematosus, hyperlipidemia, hypertension, and asthma. FAMILY HISTORY: Reviewed, noncontributory to this visit. PAST SURGICAL HISTORY: Arterial dissection, vertebral bilateral TKR x2, thermal ablation 2008, and gastric bypass. PSYCHIATRIC HISTORY: Anxiety, depression, and PTSD. SOCIAL HISTORY: The patient has a glass of wine at night and the patient denies illicit drug use and smoking history. The patient lives at home with and daughter. ALLERGIES: NO KNOWN DRUG ALLERGIES. CURRENT MEDICATIONS: The patient is on: 1. Venlafaxine. 2. Seroquel. 3. Dicyclomine. 4. Zofran. 5. Lorazepam. 6. Atorvastatin. 7. Loratadine. 8. Montelukast. 9. Levothyroxine. 10. Esomeprazole. 11. Aspirin. PHYSICAL EXAMINATION: VITAL SIGNS: Blood pressure is 143/81, pulse of 70, respiratory rate of 18, temperature of 97.6, and O2 saturation 100%. GENERAL APPEARANCE: The patient is lying on her left side. The patient is holding her abdomen. The patient states that she is in pain and the patient looks mildly distressed. HEENT: Normocephalic and atraumatic. Pupils are equally round and reactive to light. Extraocular movements are intact. No scleral icterus. Mucous membranes are dry. The patient has a bite in her tongue. NECK: No JVD. Trachea is midline. Full range of motion. CARDIAC: Positive S1 and S2. Regular rate and rhythm. No murmurs. No gallops. No rubs appreciated. LUNGS: Clear to auscultation bilaterally. No wheezing, no rales, no rhonchi are appreciated. ABDOMEN: The patient has diffuse abdominal tenderness with light palpation and the patient has hypoactive bowel sounds. No rigidity. No guarding. No peritoneal signs. Negative for Curran and Rovsing signs. EXTREMITIES: 5/5 upper extremity strength. 5/5 lower extremity strength. The patient has good pulses bilaterally in the upper and lower extremities. No edema noted. NEUROLOGIC: Cranial nerves 2 through 12 grossly intact. No neurologic deficits noted. SKIN: Warm, dry, and intact. The patient does have some mild bruising on the legs and arms. DIAGNOSTIC DATA: EKG that was done showed sinus bradycardia of 59. LABORATORY DATA: The patient's WBC is 4.2, hemoglobin is 15.6, hematocrit is 45.1, and platelets 294. VBG; pH is 7.3, pCO2 is 37.4, and pO2 is 130. Electrolytes; sodium is 136, potassium is 4.4, chloride is 100, carbon dioxide of 17, gap of 23, glucose 332, creatinine is 1.02, and BUN is 11. Urinalysis, negative for nitrite and leukocyte esterases. Toxicology, the patient has positive cannabinoids, otherwise all is negative. ASSESSMENT AND PLAN: This is a 47-year-old female with multiple comorbidities, being admitted for seizure activity. At this point, the patient had witnessed seizures in the ED. The patient was given Ativan p.r.n. We started the patient on Keppra. We have consulted Neurology. We will follow up Neurology regarding their recommendation. The patient is going to be admitted to the [facility] for further evaluation. We will do EEG to see if there is still some seizure activity, which is ongoing. We will continue to monitor the patient very closely. We will do neuro checks and seizure precautions. 1. Acute bronchitis. At this point, the patient is going to be continued on antibiotics. We will continue to supportively manage the patient. Pulmonology is on consult. We will follow up with their recommendations. 2. Abdominal pain, likely due to gastroparesis. The patient states that she has history of uncontrolled diabetes, and also the patient has a history of constipation with sometimes diarrhea. At this point, we are going to control the patient's blood sugars. We will give the patient antiemetics, and we will give the patient IV fluids. CT of the abdomen and pelvis has been ordered. We will follow up a CT of the abdomen and pelvis. 3. Diabetes mellitus type 2, uncontrolled. At this point, we will continue the patient on insulin sliding scale. We will try and control the patient's blood sugars and keep blood sugars between 140 to 180. 4. History of lupus, currently stable. We will continue the patient on current medications. 5. Dyslipidemia. We will continue the patient on home medications. 6. Hypertension, currently uncontrolled. We will continue the patient on her home medications, and we will do p.r.n. IV blood pressure medications to control the patient's blood pressures. 7. History of gastric bypass. At this point, CT of the abdomen and pelvis has been ordered. We will follow up on this exam. We will make sure that the patient's gastric bypass is intact and to follow up on the CT to make sure there are no abnormalities. 8. History of ankylosing spondylitis, currently stable. We will monitor the patient closely. 9. Deep venous thrombosis and gastrointestinal prophylaxis. Job ID: [id number]
--- NOTE | 2018-02-19 13:05 | PDOC.PN ---
- Subjective Encounter Start Date: 02/19/18 Encounter Start Time: 10:15 Subjective: pt up in bed feels nauseous - Objective Resuscitation Status - Order Detail: 02/19/18 05:09 Resuscitation Status Routine Resuscitation Status: FULL: Full Resuscitation Vital Signs & Weight: Vital Signs (12 hours) Temp Pulse Resp BP Pulse Ox 02/19/18 11:03 98.0 F 70 16 187/96 H 96 02/19/18 08:00 100 02/19/18 06:35 97.7 F 68 20 183/72 H 100 Weight Weight 183 lb Result Diagrams: 02/18/18 23:51 02/18/18 23:51 Additional Labs: Accuchecks 02/19/18 02/19/18 10:28 07:44 POC Glucose 220 H 292 H Phys Exam - Physical Examination Neck: no nodes, no JVD, supple, full ROM Respiratory: no wheezing, no rales, no rhonchi, wheezing present, clear to auscultation bilateral Cardiovascular: RRR, no significant murmur, no rub, gallop, irregular Gastrointestinal: soft, non-tender, no distention, positive bowel sounds Musculoskeletal: no edema, pulses present, edema present Neurological: non-focal, normal sensation, moves all 4 limbs Dx/Plan (1) Seizure Code(s): R56.9 - UNSPECIFIED CONVULSIONS Status: Acute (2) Abdominal pain Code(s): R10.9 - UNSPECIFIED ABDOMINAL PAIN Status: Acute (3) Nausea & vomiting Code(s): R11.2 - NAUSEA WITH VOMITING, UNSPECIFIED Status: Acute (4) Hypothermia Code(s): T68.XXXA - HYPOTHERMIA, INITIAL ENCOUNTER Status: Acute - Plan will get MRI brain, LP negative -: Do not think she has any infectious process. -: will continue keppra for now * . Review of Systems - Review of Systems Respiratory: negative: Cough, Dry, Shortness of Breath, Hemoptysis, SOB with Excertion, Pleuritic Pain, Sputum, Wheezing Cardiovascular: negative: chest pain, palpitations, orthopnea, paroxysmal nocturnal dyspnea, edema, light headedness, other Gastrointestinal: Nausea Genitourinary: negative: Dysuria, Frequency, Incontinence, Hematuria, Retention , Other Musculoskeletal: negative: Neck Pain, Shoulder Pain, Arm Pain, Back Pain, Hand Pain, Leg Pain, Foot Pain, Other - Medications/Allergies Allergies/Adverse Reactions: Allergies Allergy/AdvReac Type Severity Reaction Status Date / Time No Known Drug Allergies Allergy Verified 07/04/17 15:38 Medications: Current Medications Acetaminophen (Tylenol) 650 mg PO Q4H PRN PRN Reason: Headache/Fever/Mild Pain (1-3) Bisacodyl (Dulcolax) 10 mg PO DAILYPRN PRN PRN Reason: Constipation Calcium Carbonate (Tums) 1,000 mg PO Q4H PRN PRN Reason: Heartburn or Indigestion Dextrose/Water (Dextrose 50%) 25 gm SLOW IVP PRN PRN PRN Reason: Hypoglycemia Enoxaparin Sodium (Lovenox) 40 mg SC 0900 [facility] Last Admin: 02/19/18 09:20 Dose: 40 mg Famotidine (Pepcid) 20 mg SLOW IVP Q12HR [facility] Last Admin: 02/19/18 09:19 Dose: Not Given Famotidine (Pepcid) 20 mg PO BID [facility] Last Admin: 02/19/18 09:19 Dose: 20 mg Fentanyl (Sublimaze) 25 mcg SLOW IVP Q2H PRN PRN Reason: Pain IF UNABLE TO TAKE PO Glucagon (Glucagon) 1 mg IM PRN PRN PRN Reason: Hypoglycemia Sodium Chloride (Normal Saline 0.9%) 1,000 mls @ 100 mls/hr IV .Q10H [facility] Last Admin: 02/19/18 07:44 Dose: 1,000 mls Dextrose/Water (D5w) 1,000 mls @ 0 mls/hr IV .Q0M PRN PRN Reason: Hypoglycemia Levetiracetam 500 mg/ Device 100 mls @ 200 mls/hr IVPB BID [facility] Last Admin: 02/19/18 09:19 Dose: 100 mls Cefepime HCl 1 gm/ Sodium (Chloride) 100 mls @ 200 mls/hr IVPB Q12HR [facility] Last Admin: 02/19/18 09:38 Dose: 100 mls Insulin Human Lispro (Humalog) 0 units SC .MODERATE SLIDING SC PRN PRN Reason: Moderate Correctional Scale Insulin Human Lispro (Humalog) 0 units SC .BEDTIME SLIDING SC PRN PRN Reason: Bedtime Correctional Scale Lorazepam (Ativan) 2 mg SLOW IVP Q15MIN PRN PRN Reason: Seizures Ondansetron HCl (Zofran Odt) 4 mg PO Q6H PRN PRN Reason: Nausea/Vomiting Ondansetron HCl (Zofran) 4 mg IVP Q6H PRN PRN Reason: Nausea/Vomiting Last Admin: 02/19/18 09:18 Dose: 4 mg Senna/Docusate Sodium (Senokot S) 2 tab PO BID PRN PRN Reason: Constipation Sodium Chloride (Flush - Normal Saline) 10 ml IVF Q12HR PRN PRN Reason: Saline Flush Sodium Chloride (Flush - Normal Saline) 10 ml IVF PRN PRN PRN Reason: Saline Flush
--- NOTE | 2018-02-19 13:25 | CON ---
DATE OF CONSULTATION: 02/19/2018 REASON FOR CONSULTATION: IMC placement. HISTORY OF PRESENT ILLNESS: A 47-year-old female who came in last night with abdominal pain. She subsequently had a generalized seizure in the emergency room and almost had to be intubated. She did have a grossly elevated prolactin level. She underwent an LP that was nondiagnostic. She is currently pending. Neurology consultation has been brought in the [facility]. She does not appear to be in any distress. She is continuing to have some abdominal pain. Over the last 5 days, she has had some nausea, vomiting, and diarrhea. PAST MEDICAL HISTORY: 1. Ankylosing spondylitis. 2. Lupus. 3. Bilateral knee replacements. 4. Hyperlipidemia. 5. Diabetes mellitus, type 2. 6. Gastric bypass surgery. 7. Hypertension. 8. Vertebral artery dissection. 9. Stroke x3 with residual right arm deficit. She also has a visual field deficit. SOCIAL HISTORY: Nonsmoker. Does not consume alcohol. Lives with daughter. PSYCHIATRIC HISTORY: Not remarkable for anxiety, depression, PTSD. ALLERGIES: NONE. FAMILY MEDICAL HISTORY: Unremarkable. MEDICATIONS: Prior to admission; 1. Bentyl 10 mg q.i.d. 2. Victoza 1.2 mg subcu daily. 3. Synthroid 75 mcg daily. 4. Nexium 40 mg daily. 5. Singulair 10 mg daily. 6. Claritin 10 mg daily. 7. Lorazepam 2 mg daily. 8. Atorvastatin 10 mg nightly. 9. Zofran 4 mg as needed. 10. Aspirin 325 mg daily. 11. Effexor 150 mg daily. 12. Seroquel 200 mg nightly. PHYSICAL EXAMINATION: VITAL SIGNS: Temperature 97.7, pulse 68, respirations 20, O2 saturation 100% on room air, blood pressure 183/72. GENERAL: She is awake and alert. She is texting on her phone, does not appear to be in any distress. HEENT: Unremarkable. NECK: No JVD. LUNGS: Clear without wheezing or rhonchi. CARDIAC: S1 and S2, regular with a split S1 and S2. ABDOMEN: Mildly tender to deep palpation. No hepatosplenomegaly. EXTREMITIES: No clubbing, cyanosis, or edema. LABORATORY DATA: Sodium 137, potassium 3.7, chloride 104, CO2 of 17, BUN 11, creatinine 1.0. Last glucose 301. Prolactin level was 76.9. White blood cell count 4.2, hematocrit 45, platelet count 294. Urinalysis showed ketonuria and proteinuria. CSF showed elevated glucose, elevated red blood cells. Brain CT showed no acute findings. Chest x-ray, normal heart size, normal lung villafana. No infiltrates. ASSESSMENT: 1. New onset seizure. 2. Metabolic acidosis. 3. History of lupus. 4. History of stroke in the past. PLAN: The patient is pending Neurology consultation. She has been loaded with anticonvulsants. She will continue IV hydration. She is on empiric antibiotic therapy. Her diabetes being treating with sliding scale insulin. No pulmonary recommendations at this time. Further care per hospitalist and Neurology. Job ID: [id number]
--- NOTE | 2018-02-19 14:34 | EEG ---
Referring Physician: Johnnie DIGGS EEG # [id number] TEST TYPE: ROUTINE PORTABLE INPATIENT REPORT: AN EEG USING THE INTERNATIONAL TEN-TWENTY SYSTEM OF ELECTRODE PLACEMENT WAS PERFORMED. The waking background is a 9 hertz alpha frequency. The patient remained awake throughout the study. Photic stimulation was unremarkable. There was a moderate amount of muscle tension and movement artifact. No epileptiform features were present. IMPRESSION: THIS IS A NORMAL AWAKE EEG. Shuttle Buggy Operator: LINDA Proposal Analyst: [email or web address]
--- NOTE | 2018-02-19 15:49 | MRI ---
MRI BRAIN NONCONTRAST: DATE: 02/19/2018. HISTORY: A 47-year-old female with dizziness, nausea, vomiting, headache, and visual disturbances. COMPARISON: 07/04/2017. FINDINGS: Most of the images are degraded by patient motion. Many of the sequences were repeated, but there is motion artifact on the repeated sequences. Again noted are the patchy intraaxial T2 hyperintensities in the bilateral posterior paramedian in up per and mid posterior parietal lobes. These are currently more extensive now than before, involving the left cerebral convexity, which involves the left paracentral lobule and adjacent posterior aspect of the left precentral gyrus and postcentral gyrus. It is also slightly more extensive now than bef ore in the contralateral right posterior medial parietal lobe. There are smaller areas of gyriform T2 hyperintensities involving bilateral occipital lobes. Both co rtical peck matter and subcortical white matter are involved. Again noted is the small approximately 1 cm T2 hyperintense lesion involving the anterior medial aspe ct of the left thalamus. This has not significantly changed. There is a new similar-sized but more faint and subtle such lesion in the contralateral right medial thalamus. Ventricles are normal in size and configuration. No mass effect, midline shift, restricted diffusion , extraaxial fluid collection, or obvious acute intraaxial hemorrhage. No asymmetry between the righ t and left hippocampi. Regarding the T2 hyperintense lesions described above, they could represent old infarctions. However, the lack of focal parenchymal atrophy in those involved areas is atypical for old infarctions. Othe r possibilities include recurrent PRES, versus other unknown pathologies. IMPRESSION: 1. Multiple signal abnormalities in the bilateral posterior paramedian parietal lobes and occipital lobes, and left thalamus. These have worsened since the prior MRI. 2. Etiology is uncertain. Possibilities include recurrent PRES (posterior reversible encephalopathy syndrome), cerebritis, or old infarctions with additional infarctions that occurred sometime after th e previous MRI of 07/04/2017. The pattern is not typical for old infarctions because of lack of the e xpected local atrophy at the involved regions. 3. Recommend further evaluation with MRI of the brain with and without contrast. JN R POS: CET
[2018-02-19] MEDS: hydrALAZINE 20 MG/ML VIAL SLOW IVP PRN ×3 (16:00→22:10)
[2018-02-19] MEDS: Fentanyl 100 MCG/2 ML VIAL SLOW IVP PRN ×2 (17:11→21:38)
[2018-02-19] MEDS: Morphine 4 MG/ML VIAL SLOW IVP PRN (19:08)
[2018-02-20] MEDS: Morphine 4 MG/ML VIAL SLOW IVP PRN (00:10)
[2018-02-20] MEDS: Fentanyl 100 MCG/2 ML VIAL SLOW IVP PRN ×2 (00:55→09:58)
[2018-02-20] MEDS: Ondansetron PF 4 MG/2 ML Vial IVP PRN (00:55)
[2018-02-20] MEDS ORDERED: Morphine 2 MG/ML SYRINGE SLOW IVP PRN (03:24)
[2018-02-20] MEDS ORDERED: Morphine 4 MG/ML VIAL IV PRN (03:25)
[2018-02-20 06:06] LABS: #Lymphocytes 1.8 thou/uL (1.20-3.40); #Monocytes 0.9 thou/uL (0.11-0.59); %Basophils 0.1 % (0.0-1.0); %Eosinophils 0.2 % (0.0-10.0); %Lymphocytes 18.2 % (21.0-51.0); %Monocytes 9.1 % (0.0-10.0); %Neutrophils 72.4 % (42.0-75.0); Hemoglobin 13.5 g/dL (12.0-16.0); Mean Corpuscular HGB CONC 33.7 g/dL (32.0-36.0); Mean Corpuscular Hemoglobin 29.5 pg (27.0-31.0); Mean Corpuscular Volume 87.4 fL (78.0-98.0); Platelet Count 313 thou/uL (130-400); RBC Distribution Width 12.3 % (11.5-14.5); Red Blood Cell (RBC) Count 4.59 mill/uL (4.20-5.40); White Blood Cell (WBC) Count 9.7 thou/uL (4.8-10.8)
[2018-02-20 06:15] LABS: Anion Gap 11 mmol/L (10-20); BUN (Urea Nitrogen) 13 mg/dL (7.0-18.7); Calc. Creatinine Clearance 113 mL/min (70-130); Calcium 8.3 mg/dL (7.8-10.44); Carbon Dioxide 23 mmol/L (22-29); Chloride 107 mmol/L (98-107); Estimated GFR-MDRD 76; Glucose 180 mg/dL (70-105); Potassium 3.3 mmol/L (3.5-5.1); Sodium 138 mmol/L (136-145)
[2018-02-20] MEDS: Sodium Chloride 0.9% 1,000 ML IV SCH ×3 (06:22→20:34)
[2018-02-20] MEDS ORDERED: Aspirin 325 MG TAB ONE (09:56)
[2018-02-20] MEDS: Cefepime 1 GM in Sodium Chloride 0.9% 100 ML IVPB SCH (10:05)
[2018-02-20] MEDS: Famotidine 20 MG TAB PO SCH ×2 (10:06→20:33)
[2018-02-20] MEDS: Enoxaparin Sodium 40 MG/0.4 ML SYRINGE SC SCH (10:06)
[2018-02-20] MEDS: Montelukast Sodium 10 mg Tablet PO SCH (10:09)
[2018-02-20] MEDS: Aspirin 81 mg Enteric Coated Tablet PO SCH (10:10)
[2018-02-20] MEDS: Famotidine/PF 20 mg/2ml Vial SLOW IVP SCH (10:10)
[2018-02-20] MEDS: Venlafaxine HCl XR 150 MG CAP PO SCH (10:12)
[2018-02-20] MEDS: Lorazepam 1 MG TAB PO SCH (10:17)
--- NOTE | 2018-02-20 10:39 | PRG ---
DATE OF SERVICE: 02/20/2018 SUBJECTIVE: The patient feels better today. She has no complaints. Her abdominal pain has subsided. OBJECTIVE: VITAL SIGNS: Temperature is 98.7, pulse 68, respirations 13, O2 saturations 100% on room air, and blood pressure 124/50. HEENT: Unremarkable. NECK: Without adenopathy, JVD, or bruits. LUNGS: Clear. CARDIAC: S1 and S2. Regular. ABDOMEN: Soft. EXTREMITIES: No edema. LABORATORY DATA: White blood cell count 9.7, hematocrit 40, and platelet count 313. Sodium 138, potassium 3.3, chloride 107, CO2 of 23, BUN 13, creatinine 0.8, and glucose 180. ASSESSMENT: The patient is status post a seizure episode. Has had no recurrence of seizures. Brain MRI shows multiple signal abnormalities in the posterior paramedian parietal lobes and occipital lobes and left thalamus that worsened since the previous MRI. RECOMMENDATIONS: This patient can definitely be transferred out to the floor. She will probably need to be monitored for a couple of days on anticonvulsants. Her abdominal pain had subsided. There are no acute pulmonary critical care issues. As such, we will sign off. Job ID: [id number]
--- NOTE | 2018-02-20 11:20 | ULT ---
GALLBLADDER ULTRASOUND: HISTORY: Right upper quadrant pain. FINDINGS: Images of the gallbladder reveal a mildly distended gallbladder. There is echogenicity material laye ring dependently in the gallbladder, suggesting sludge or gravel. No definite stones identified. The common duct is normal in caliber at 5 mm. The visualized liver is unremarkable. The pancreas is mostly obscured. The visualized right kidney is unremarkable. The technologist describes a negative Curran sign. IMPRESSION: The gallbladder appears mildly distended, and there is evidence of echogenic sludge within the gallbl adder lumen. POS: JANELLE
[2018-02-20] MEDS ORDERED: Potassium Chloride 20 MEQ TAB PO SCH (12:00)
[2018-02-20] MEDS ORDERED: Clopidogrel Bisulfate 75 MG TAB PO SCH (12:00)
--- NOTE | 2018-02-20 13:16 | PDOC.PN ---
- Subjective Encounter Start Date: 02/20/18 Encounter Start Time: 10:15 Subjective: pt up in bed feels much better now - Objective Resuscitation Status - Order Detail: 02/19/18 05:09 Resuscitation Status Routine Resuscitation Status: FULL: Full Resuscitation Vital Signs & Weight: Vital Signs (12 hours) Temp Pulse Pulse Pulse Resp BP BP 02/20/18 11:46 98.5 F 66 15 02/20/18 10:50 68 66 128/74 164/75 H 02/20/18 08:00 02/20/18 07:49 98.7 F 68 13 02/20/18 04:00 98.7 F 83 16 BP Pulse Ox 02/20/18 11:46 164/75 H 100 02/20/18 10:50 02/20/18 08:00 100 02/20/18 07:49 124/50 L 100 02/20/18 04:00 143/69 H 99 Weight Weight 186 lb 7 oz I&O: 02/19/18 02/20/18 02/21/18 06:59 06:59 06:59 Intake Total 1420 Output Total 925 Balance 495 Result Diagrams: 02/20/18 04:27 02/20/18 04:27 Additional Labs: Accuchecks 02/20/18 02/20/18 02/19/18 10:25 00:18 20:11 POC Glucose 186 H 231 H 228 H 02/19/18 16:15 POC Glucose 208 H Phys Exam - Physical Examination Neck: no nodes, no JVD, supple, full ROM Respiratory: no wheezing, no rales, no rhonchi, wheezing present, clear to auscultation bilateral Cardiovascular: RRR, no significant murmur, no rub, gallop, irregular Gastrointestinal: soft, non-tender, no distention, positive bowel sounds Dx/Plan (1) Seizure Code(s): R56.9 - UNSPECIFIED CONVULSIONS Status: Acute (2) Abdominal pain Code(s): R10.9 - UNSPECIFIED ABDOMINAL PAIN Status: Acute (3) Nausea & vomiting Code(s): R11.2 - NAUSEA WITH VOMITING, UNSPECIFIED Status: Acute (4) Hypothermia Code(s): T68.XXXA - HYPOTHERMIA, INITIAL ENCOUNTER Status: Acute - Plan will discotninue abx do not think any infectious etiology -: ruq indicated sludge in gallbladder will get HIDA -: possible PRES given her sympoms and MRI finding * . Review of Systems - Review of Systems ENT: negative: Ear Pain, Ear Discharge, Nose Pain, Nose Discharge, Nose Congestion, Mouth Pain, Mouth Swelling, Throat Pain, Throat Swelling, Other Respiratory: negative: Cough, Dry, Shortness of Breath, Hemoptysis, SOB with Excertion, Pleuritic Pain, Sputum, Wheezing Cardiovascular: negative: chest pain, palpitations, orthopnea, paroxysmal nocturnal dyspnea, edema, light headedness, other Gastrointestinal: negative: Nausea, Vomiting, Abdominal Pain, Diarrhea, Constipation, Melena, Hematochezia, Other Genitourinary: negative: Dysuria, Frequency, Incontinence, Hematuria, Retention , Other - Medications/Allergies Allergies/Adverse Reactions: Allergies Allergy/AdvReac Type Severity Reaction Status Date / Time No Known Drug Allergies Allergy Verified 07/04/17 15:38 Medications: Current Medications Acetaminophen (Tylenol) 650 mg PO Q4H PRN PRN Reason: Headache/Fever/Mild Pain (1-3) Aspirin (Ecotrin) 325 mg PO DAILY [facility] Last Admin: 02/20/18 10:10 Dose: Not Given Atorvastatin Calcium (Lipitor) 10 mg PO HS [facility] Bisacodyl (Dulcolax) 10 mg PO DAILYPRN PRN PRN Reason: Constipation Calcium Carbonate (Tums) 1,000 mg PO Q4H PRN PRN Reason: Heartburn or Indigestion Clopidogrel Bisulfate (Plavix) 75 mg PO DAILY [facility] Clopidogrel Bisulfate (Plavix) 75 mg PO NOW [facility] Stop: 02/20/18 14:00 Last Admin: 02/20/18 12:09 Dose: 75 mg Dextrose/Water (Dextrose 50%) 25 gm SLOW IVP PRN PRN PRN Reason: Hypoglycemia Enoxaparin Sodium (Lovenox) 40 mg SC 0900 [facility] Last Admin: 02/20/18 10:06 Dose: 40 mg Famotidine (Pepcid) 20 mg PO BID [facility] Last Admin: 02/20/18 10:06 Dose: 20 mg Fentanyl (Sublimaze) 25 mcg SLOW IVP Q2H PRN PRN Reason: Pain IF UNABLE TO TAKE PO Last Admin: 02/20/18 09:58 Dose: 25 mcg Glucagon (Glucagon) 1 mg IM PRN PRN PRN Reason: Hypoglycemia Hydralazine HCl (Apresoline) 5 mg SLOW IVP Q6H PRN PRN Reason: SBP>180 Last Admin: 02/19/18 22:10 Dose: 5 mg Sodium Chloride (Normal Saline 0.9%) 1,000 mls @ 100 mls/hr IV .Q10H [facility] Last Admin: 02/20/18 06:22 Dose: 1,000 mls Dextrose/Water (D5w) 1,000 mls @ 0 mls/hr IV .Q0M PRN PRN Reason: Hypoglycemia Levetiracetam 500 mg/ Device 100 mls @ 200 mls/hr IVPB BID [facility] Last Admin: 02/20/18 10:05 Dose: 100 mls Insulin Human Lispro (Humalog) 0 units SC .MODERATE SLIDING SC PRN PRN Reason: Moderate Correctional Scale Insulin Human Lispro (Humalog) 0 units SC .BEDTIME SLIDING SC PRN PRN Reason: Bedtime Correctional Scale Levothyroxine Sodium (Synthroid) 75 mcg PO 0600 [facility] Lorazepam (Ativan) 2 mg SLOW IVP Q15MIN PRN PRN Reason: Seizures Lorazepam (Ativan) 2 mg PO DAILY [facility] Last Admin: 02/20/18 10:17 Dose: 2 mg Montelukast Sodium (Singulair) 10 mg PO DAILY [facility] Last Admin: 02/20/18 10:09 Dose: 10 mg Ondansetron HCl (Zofran Odt) 4 mg PO Q6H PRN PRN Reason: Nausea/Vomiting Last Admin: 02/20/18 09:58 Dose: 4 mg Ondansetron HCl (Zofran) 4 mg IVP Q6H PRN PRN Reason: Nausea/Vomiting Last Admin: 02/20/18 00:55 Dose: 4 mg Pantoprazole Sodium (Protonix) 40 mg PO DAILY [facility] Last Admin: 02/20/18 10:09 Dose: 40 mg Potassium Chloride (K-Dur) 40 meq PO NOW [facility] Stop: 02/20/18 14:00 Last Admin: 02/20/18 12:09 Dose: 40 meq Quetiapine Fumarate (Seroquel) 200 mg PO [facility] Senna/Docusate Sodium (Senokot S) 2 tab PO BID PRN PRN Reason: Constipation Sodium Chloride (Flush - Normal Saline) 10 ml IVF Q12HR PRN PRN Reason: Saline Flush Sodium Chloride (Flush - Normal Saline) 10 ml IVF PRN PRN PRN Reason: Saline Flush Venlafaxine HCl (Effexor Xr) 150 mg PO DAILY [facility] Last Admin: 02/20/18 10:12 Dose: 150 mg
[2018-02-20 13:26] VITALS: BMI 31.0
[2018-02-20] MEDS: Atorvastatin Calcium 10 MG TAB PO SCH (20:33)
--- NOTE | 2018-02-20 23:35 | CON ---
DATE OF CONSULTATION: 02/20/2018 TYPE OF CONSULTATION: Neurology CONSULTING PHYSICIAN: Hospitalist Service. IMPRESSION: 1. Seizure secondary to prior strokes. 2. Prior vertebral artery dissection with secondary stroke secondary to severe coughing episode. 3. Recurrent occipital lobe infarct secondary to dehydration. 4. Migraine headaches with visual aura. 5. Asthma. PLAN: 1. Keppra 500 mg twice a day. 2. Aspirin 81 mg per day. 3. Plavix 75 mg per day. 4. Office followup. HOSPITAL COURSE: This is a 47-year-old woman who has a fairly extensive medical history due to problems that date back to 2006. She had her 1st occipital lobe infarct at that time. She was found to have a vertebral artery dissection. It was recommended that she take Coumadin, but did not care for the excessive bruising. In 2013, she had a recurrent stroke after severe GI illness with nausea, vomiting, diarrhea, and dehydration. She has found that she has recurrent bouts of abdominal pain and vomiting since she went on a trip to [facility]. She was diagnosed with an E. coli infection. When she has a bout of vomiting and diarrhea, she often times moves into a migraine headache. This is associated with some central visual field deficit and severe headache. This has happened on several occasions. She had a bout of abdominal pain, which subsequently led into a secondary seizure. She was admitted for further evaluation. Her MRI of the brain shows multiple areas of ischemia involving both paramedian and parietal lobes, occipital lobes, and left thalamus none of which were acute. There was some apparent progression of ischemic change compared to a prior MRI. She has had some variable blood pressure in the past with spikes, running over 200/100. She is not on any regular antihypertensives. I was called to give a neurologic opinion. At this point, she feels like she is back to her baseline neurologic status. PAST MEDICAL HISTORY: As listed above. ALLERGIES: NONE REPORTED. SOCIAL HISTORY: She is . No reported tobacco or alcohol use. FAMILY HISTORY: Noncontributory. REVIEW OF SYSTEMS: Otherwise negative for any ongoing chest pain or shortness of breath. Positive for abdominal pain with nausea and vomiting. PHYSICAL EXAMINATION: GENERAL: She is a well-nourished, middle-aged woman, in no acute distress. VITAL SIGNS: Blood pressure 147/69, pulse 66, respirations 15, temperature 98.6. HEENT: Unremarkable. NECK: Supple. EXTREMITIES: No cyanosis. NEUROLOGIC: She is alert and appropriate. Her speech is fluent and clear. Her cranial nerve exam is only notable for an inferior field deficit. There are no focal motor deficits. No abnormal movements were seen. Gait was not tested. DIAGNOSTIC DATA: EKG showed sinus bradycardia. LABORATORY STUDIES: Unremarkable CBC, coags, and chemistry panel other than an elevated blood glucose. Urinalysis was only positive for glucose. She had a CSF analysis, which was a traumatic tap, but was otherwise unremarkable and her toxicology screen was positive for marijuana. SUMMARY: This is a middle-aged woman with multiple issues, developed secondary seizure secondary to her underlying vascular disease. We would continue antiplatelet therapy and Keppra for seizure prevention. I will follow up with her in the office. Job ID: [id number]
[2018-02-21] MEDS: Sodium Chloride 0.9% 1,000 ML IV SCH ×2 (07:40→21:34)
[2018-02-21] MEDS: Levothyroxine Sodium 75 MCG TAB PO SCH (08:09)
--- NOTE | 2018-02-21 13:54 | NM ---
NUCLEAR MEDICINE HIDA SCAN WITH EF AND WALL MOTION: HISTORY: Abdominal pain. Nausea and vomiting. COMPARISON: None. TECHNIQUE: The patient was administered 5.5 mCi of Technetium 99m mebrofenin intravenously. Gallbladder ejectio n fraction was determined after the patient was administered 8 ounces of Ensure, 90 minutes post inje ction. FINDINGS: There is appropriate uptake of the radiotracer by the hepatic parenchyma. There is excretion of radi otracer into the intrahepatic biliary system. There is passage of radiotracer from the common bile d uct into the small bowel loops. There is radiotracer localization in the lumen of th gallbladder. Gallbladder ejection fraction is 80%. IMPRESSION: 1. No scintigraphic evidence of acute cholecystitis. 2. An 80% gallbladder ejection fraction. POS: JANELLE
[2018-02-21] MEDS ORDERED: PROPOFOL 40 ML ONE (15:48)
[2018-02-21] MEDS: Clopidogrel Bisulfate 75 MG TAB PO SCH (17:37)
[2018-02-21] MEDS: Aspirin 81 mg Enteric Coated Tablet PO SCH (17:37)
[2018-02-21] MEDS: Famotidine 20 MG TAB PO SCH ×2 (17:38→20:50)
[2018-02-21] MEDS: Enoxaparin Sodium 40 MG/0.4 ML SYRINGE SC SCH (17:38)
[2018-02-21] MEDS: Montelukast Sodium 10 mg Tablet PO SCH (17:38)
[2018-02-21] MEDS: Venlafaxine HCl XR 150 MG CAP PO SCH (17:38)
[2018-02-21] MEDS: Lorazepam 1 MG TAB PO SCH (17:38)
[2018-02-21] MEDS: Atorvastatin Calcium 10 MG TAB PO SCH (20:50)
--- NOTE | 2018-02-21 21:45 | ECHO ---
DATE OF PROCEDURE: 02/21/18 Patient is a 47-year-old woman with cerebrovascular accident. DESCRIPTION OF PROCEDURE: The patient was taken to the PACU. The patient was sedated by anesthesiology. A transesophageal pro be was placed into the distal esophagus and stomach. Echocardiographic images were obtained. The tr ansesophageal probe was removed. FINDINGS: 1. Normal left ventricular systolic function. 2. Normal mitral and aortic valves. 3. Mild tricuspid regurgitation. 4. No vegetations were noted on the cardiac valves. 5. Small PFO by contrast bubble exam. IMPRESSION: No vegetations were noted on the cardiac valves with a small PFO.
[2018-02-22] MEDS: Sodium Chloride 0.9% 1,000 ML IV SCH ×2 (00:55→12:16)
[2018-02-22] MEDS: Levothyroxine Sodium 75 MCG TAB PO SCH (06:35)
[2018-02-22] MEDS: Lorazepam 1 MG TAB PO SCH (09:25)
[2018-02-22] MEDS: Montelukast Sodium 10 mg Tablet PO SCH (09:25)
[2018-02-22] MEDS: Famotidine 20 MG TAB PO SCH (09:25)
[2018-02-22] MEDS: Aspirin 81 mg Enteric Coated Tablet PO SCH (09:25)
[2018-02-22] MEDS: Clopidogrel Bisulfate 75 MG TAB PO SCH (09:25)
[2018-02-22] MEDS: Enoxaparin Sodium 40 MG/0.4 ML SYRINGE SC SCH (09:26)
[2018-02-22] MEDS: Venlafaxine HCl XR 150 MG CAP PO SCH (09:26)
--- NOTE | 2018-02-22 13:28 | EKG ---
Test Reason : Blood Pressure : / mmHG Vent. Rate : 059 BPM Atrial Rate : 059 BPM P-R Int : 152 ms QRS Dur : 100 ms QT Int : 484 ms P-R-T Axes : 054 018 042 degrees QTc Int : 479 ms Sinus bradycardia with sinus arrhythmia Otherwise normal ECG Confirmed by TALIA ALEJANDRO DO ([id number]), proposal editor WILD IBRAHIM ([id number] on 02/22/2018 1:27:44 PM Referred By: Confirmed By:TALIA ALEJANDRO DO
--- NOTE | 2018-02-22 14:41 | PDOC.PN ---
- Subjective Encounter Start Date: 02/22/18 Encounter Start Time: 10:15 Subjective: pt up in bed having some diarrhea - Objective Resuscitation Status - Order Detail: 02/19/18 05:09 Resuscitation Status Routine Resuscitation Status: FULL: Full Resuscitation Vital Signs & Weight: Vital Signs (12 hours) Temp Pulse Resp BP Pulse Ox 02/22/18 11:54 98.6 F 80 16 129/54 L 99 02/22/18 07:32 97.8 F 66 16 127/59 L 97 02/22/18 07:30 98 02/22/18 04:42 97 02/22/18 04:31 97.6 F 67 20 100/53 L 97 Weight Admit Weight 183 lb Weight 186 lb 7 oz I&O: 02/21/18 02/22/18 02/23/18 06:59 06:59 06:59 Intake Total 2490 3476 600 Balance 2490 3476 600 Result Diagrams: 02/20/18 04:27 02/20/18 04:27 Additional Labs: Accuchecks 02/22/18 02/22/18 02/22/18 11:40 07:49 05:49 POC Glucose 178 H 113 H 112 H 02/21/18 02/21/18 21:34 17:24 POC Glucose 118 H 233 H Phys Exam - Physical Examination Neck: no nodes, no JVD, supple, full ROM Respiratory: no wheezing, no rales, no rhonchi, wheezing present, clear to auscultation bilateral Cardiovascular: RRR, no significant murmur, no rub, gallop, irregular Gastrointestinal: soft, non-tender, no distention, positive bowel sounds Dx/Plan (1) Seizure Code(s): R56.9 - UNSPECIFIED CONVULSIONS Status: Acute (2) Abdominal pain Code(s): R10.9 - UNSPECIFIED ABDOMINAL PAIN Status: Acute (3) Nausea & vomiting Code(s): R11.2 - NAUSEA WITH VOMITING, UNSPECIFIED Status: Acute (4) Hypothermia Code(s): T68.XXXA - HYPOTHERMIA, INITIAL ENCOUNTER Status: Acute (5) Diarrhea Code(s): R19.7 - DIARRHEA, UNSPECIFIED Status: Acute - Plan HARMEET with bubble study indicated small pfo -: HIDA scan negative, pt has IBS and will have diarrhea and constipation -: pt and family wants to stay one more day to see if her diarrhea improves -: She is afraid that she will get dehydrated. pt normally gets diarrhea at -: home. She tolerated her dinner last night. * . Review of Systems - Review of Systems ENT: negative: Ear Pain, Ear Discharge, Nose Pain, Nose Discharge, Nose Congestion, Mouth Pain, Mouth Swelling, Throat Pain, Throat Swelling, Other Respiratory: negative: Cough, Dry, Shortness of Breath, Hemoptysis, SOB with Excertion, Pleuritic Pain, Sputum, Wheezing Cardiovascular: negative: chest pain, palpitations, orthopnea, paroxysmal nocturnal dyspnea, edema, light headedness, other Gastrointestinal: Diarrhea Genitourinary: negative: Dysuria, Frequency, Incontinence, Hematuria, Retention , Other - Medications/Allergies Allergies/Adverse Reactions: Allergies Allergy/AdvReac Type Severity Reaction Status Date / Time No Known Drug Allergies Allergy Verified 07/04/17 15:38 Medications: Current Medications Acetaminophen (Tylenol) 650 mg PO Q4H PRN PRN Reason: Headache/Fever/Mild Pain (1-3) Last Admin: 02/21/18 14:25 Dose: 650 mg Aspirin (Ecotrin) 325 mg PO DAILY [facility] Last Admin: 02/22/18 09:25 Dose: 325 mg Atorvastatin Calcium (Lipitor) 10 mg PO HS [facility] Last Admin: 02/21/18 20:50 Dose: 10 mg Bisacodyl (Dulcolax) 10 mg PO DAILYPRN PRN PRN Reason: Constipation Calcium Carbonate (Tums) 1,000 mg PO Q4H PRN PRN Reason: Heartburn or Indigestion Clopidogrel Bisulfate (Plavix) 75 mg PO DAILY [facility] Last Admin: 02/22/18 09:25 Dose: 75 mg Dextrose/Water (Dextrose 50%) 25 gm SLOW IVP PRN PRN PRN Reason: Hypoglycemia Enoxaparin Sodium (Lovenox) 40 mg SC 0900 [facility] Last Admin: 02/22/18 09:26 Dose: 40 mg Famotidine (Pepcid) 20 mg PO BID [facility] Last Admin: 02/22/18 09:25 Dose: 20 mg Fentanyl (Sublimaze) 25 mcg SLOW IVP Q2H PRN PRN Reason: Pain IF UNABLE TO TAKE PO Last Admin: 02/20/18 09:58 Dose: 25 mcg Glucagon (Glucagon) 1 mg IM PRN PRN PRN Reason: Hypoglycemia Hydralazine HCl (Apresoline) 5 mg SLOW IVP Q6H PRN PRN Reason: SBP>180 Last Admin: 02/19/18 22:10 Dose: 5 mg Sodium Chloride (Normal Saline 0.9%) 1,000 mls @ 100 mls/hr IV .Q10H [facility] Last Admin: 02/22/18 12:16 Dose: 1,000 mls Dextrose/Water (D5w) 1,000 mls @ 0 mls/hr IV .Q0M PRN PRN Reason: Hypoglycemia Levetiracetam 500 mg/ Device 100 mls @ 200 mls/hr IVPB BID [facility] Last Admin: 02/22/18 09:20 Dose: 100 mls Insulin Human Lispro (Humalog) 0 units SC .MODERATE SLIDING SC PRN PRN Reason: Moderate Correctional Scale Insulin Human Lispro (Humalog) 0 units SC .BEDTIME SLIDING SC PRN PRN Reason: Bedtime Correctional Scale Levothyroxine Sodium (Synthroid) 75 mcg PO 0600 [facility] Last Admin: 02/22/18 06:35 Dose: 75 mcg Lorazepam (Ativan) 2 mg SLOW IVP Q15MIN PRN PRN Reason: Seizures Lorazepam (Ativan) 2 mg PO DAILY [facility] Last Admin: 02/22/18 09:25 Dose: Not Given Montelukast Sodium (Singulair) 10 mg PO DAILY [facility] Last Admin: 02/22/18 09:25 Dose: 10 mg Ondansetron HCl (Zofran Odt) 4 mg PO Q6H PRN PRN Reason: Nausea/Vomiting Last Admin: 02/20/18 09:58 Dose: 4 mg Ondansetron HCl (Zofran) 4 mg IVP Q6H PRN PRN Reason: Nausea/Vomiting Last Admin: 02/20/18 00:55 Dose: 4 mg Pantoprazole Sodium (Protonix) 40 mg PO DAILY [facility] Last Admin: 02/22/18 09:26 Dose: 40 mg Quetiapine Fumarate (Seroquel) 200 mg PO HS [facility] Last Admin: 02/21/18 20:50 Dose: 200 mg Senna/Docusate Sodium (Senokot S) 2 tab PO BID PRN PRN Reason: Constipation Sodium Chloride (Flush - Normal Saline) 10 ml IVF Q12HR PRN PRN Reason: Saline Flush Last Admin: 02/20/18 20:33 Dose: 10 ml Sodium Chloride (Flush - Normal Saline) 10 ml IVF PRN PRN PRN Reason: Saline Flush Venlafaxine HCl (Effexor Xr) 150 mg PO DAILY [facility] Last Admin: 02/22/18 09:26 Dose: 150 mg
[2018-02-22 16:01] VITALS: BP 132/59; TEMP 98.1
--- NOTE | 2018-02-22 17:56 | DIS ---
DATE OF ADMISSION: 02/19/2018 DATE OF DISCHARGE: 02/22/2018 DISCHARGE DIAGNOSES: As of the following; 1. New onset seizure. 2. Abdominal pain, nausea, and vomiting. 3. Hypothermia. 4. Diarrhea. 5. Stroke. 6. Irritable bowel syndrome with occasional diarrhea and constipation. 7. Vertebral artery dissection. 8. History of gastric bypass. 9. History of giardiasis. HOSPITAL COURSE: The patient is a 47-year-old female, who initially presented to the hospital with significant abdominal pain, nausea, and vomiting. The patient initially in the ER had a seizure and was given some antiseizure medication and also was found to be hypothermic, so she was put on IV antibiotics and then was admitted into the IMCU. She also had a lumbar puncture done, which indicated only 1 wbc, had many rbc's, total protein was 30, and glucose was 149. The initial lumbar fluid culture was negative. The patient's antibiotics were then discontinued. She then initially had a CT head, which indicated some hypoattenuation within the posterior parietal and occipital lobes bilaterally. At this time, given history of stroke, she underwent an MRI of the brain on 02/19, which indicated that she had multiple signal abnormalities in the bilateral posterior paramedian parietal lobes and occipital lobes and left thalamus, which had worsened since the prior MRI. The patient was seen by Neurology, who recommended to do further workup as an outpatient. Of note, the patient also was noted to have significantly elevated blood pressure, and there was some concern for possible PRESS given her nausea, vomiting, seizure, elevated blood pressure, and some evidence of MRI findings given that she had some worsening changes in the parieto-occipital area. The patient also during admission had underwent an abdominopelvic CT, which did not indicate any acute abnormalities. She does have a history of gastric bypass. The patient also states that she also has irritable bowel syndrome, has both components of constipation and diarrhea. The patient since had abdominal pain, nausea, and vomiting. She did have a right upper quadrant ultrasound, which indicated that the gallbladder appeared to be distended, and there was some sludge within the gallbladder lumen. At this time, she did undergo a HIDA scan, which indicated the gallbladder EF was 80% and no evidence of acute cholecystitis. The patient was asked to follow up outpatient with her primary care doctor and possibly if this continues to get her gallbladder removed. Given her history of strokes, being a female, and young age, she did have hypercoagulable workup, which was essentially negative. I went ahead and did an echo with a bubble study, which indicated a very small PFO by contrast bubble exam. I have explained these results to the patient and the patient's and recommended them to follow up with Neurology as outpatient and also primary care doctor. The patient is seen and examined. The physical examination is in the progress note. DISCHARGE MEDICATIONS: Her home medications will be as of the following. She will be on; 1. Aspirin 81 mg daily. 2. Clopidogrel 75 mg daily. 3. Keppra 500 mg b.i.d., I have advised her not to drive until she is cleared by Neurology. 4. Venlafaxine 150 mg daily. 5. Atorvastatin 10 mg at bedtime. 6. Lorazepam 2 mg daily. 7. Loratadine 10 mg daily. 8. Singulair 10 mg daily. 9. Levothyroxine 75 mcg daily. 10. Victoza 1.2 mg subcu daily. 11. Seroquel 200 mg at bedtime. 12. Flonase nasal spray 2 sprays each nostrils daily. Job ID: [id number]
[2018-02-23 16:54] LABS: ANA Symphony (Qualitative) Negative (Negative); ANA Symphony (Quantitative) 0.4 Ratio (< 0.7 Negative)
== END 2018-02-22 16:19 | disposition home or self-care (01) | DRG 101 ==
LOC: ERS 22:55 → IMCU/EMU 02-19 06:39 → 2SE 02-20 19:04
PROVIDERS: ADMIT Internal Medicine; ATTEND Internal Medicine
PROC: B246ZZ4 Ultrasonography of Right and Left Heart, Transesophageal (ICD-10-PCS; principal; 2018-02-21)
DX: R56.9 Unspecified convulsions (principal); J20.9 Acute bronchitis, unspecified; M32.9 Systemic lupus erythematosus, unspecified; E78.5 Hyperlipidemia, unspecified; I10 Essential (primary) hypertension; F41.9 Anxiety disorder, unspecified; F32.9 Major depressive disorder, single episode, unspecified; F43.10 Post-traumatic stress disorder, unspecified; E11.65 Type 2 diabetes mellitus with hyperglycemia; K58.1 Irritable bowel syndrome with constipation; K58.0 Irritable bowel syndrome with diarrhea; T68.XXXA Hypothermia, initial encounter; J45.909 Unspecified asthma, uncomplicated; G43.109 Migraine with aura, not intractable, without status migrainosus; M45.9 Ankylosing spondylitis of unspecified sites in spine; Z79.82 Long term (current) use of aspirin; Z86.73 Personal history of transient ischemic attack (TIA), and cerebral infarction without residual deficits; Z98.84 Bariatric surgery status
CPT/HCPCS: 36415; 36416; 62270; 70450; 70551; 71045; 74177; 76705; 78227; 80048; 80053; 80306; 80307; 81003; 81015; 82010; 82330; 82435; 82550; 82565; 82803; 82945; 82947; 83605; 83690; 83735; 83880; 84132; 84146; 84157; 84295; 84443; 84484; 85014; 85025; 85610; 85730; 86038; 86225; 87040; 87070; 87205; 87804; 89051; 93005; 93312; 95816; 95819; 96361; 96365; 96375; A9537; G8978-GP-CJ; G8979-GP-CJ; G8980-GP-CJ; J0360; J0692; J1650; J1953; J2001; J2060; J2270; J2405; J2543; J2704; J3010; J3370; J7050; Q0162; S0028